=== PATIENT | male | born 1960 | race Hispanic/Latino ===

== ENCOUNTER 2017-09-12 08:15 | Day surgery (SDC) | payer BC ==
[2017-09-01 10:27] VITALS: BMI 30.7
[2017-09-12] MEDS ORDERED: Sodium Chloride 0.9% 1,000 ML IV SCH (09:15)
[2017-09-12 11:36] VITALS: BP 126/86; PULSE 55; RESP 16; TEMP 97.6; O2SAT 98
== END 2017-09-12 12:43 | disposition home or self-care (01) ==
LOC: ENDO 08:15
PROVIDERS: ATTEND Internal Medicine Gastroenterology
DX: K62.1 Rectal polyp (principal); K64.0 First degree hemorrhoids; K31.7 Polyp of stomach and duodenum; K22.10 Ulcer of esophagus without bleeding; K29.50 Unspecified chronic gastritis without bleeding; K52.9 Noninfective gastroenteritis and colitis, unspecified; K21.9 Gastro-esophageal reflux disease without esophagitis; K62.5 Hemorrhage of anus and rectum; E78.5 Hyperlipidemia, unspecified; E78.00 Pure hypercholesterolemia, unspecified; Z90.49 Acquired absence of other specified parts of digestive tract
CPT/HCPCS: 43239; 45380; 88305; 88312; 88342; J2001; J7030; J7040

== ENCOUNTER 2017-12-22 09:48 | Day surgery (SDC) | payer BC ==
[2017-12-20 08:59] VITALS: BMI 30.2
[2017-12-22] MEDS ORDERED: Propofol 10 mg/ml Inj (20 ML) ONE (11:09)
[2017-12-22] MEDS ORDERED: Sodium Chloride 0.9% 1,000 ML IV SCH (11:15)
[2017-12-22 12:22] VITALS: PULSE 63
[2017-12-22 13:42] VITALS: BP 119/77; RESP 18; TEMP 97.6; O2SAT 96
== END 2017-12-22 13:01 | disposition home or self-care (01) ==
LOC: ENDO 09:48
PROVIDERS: ATTEND Internal Medicine Gastroenterology
DX: K25.9 Gastric ulcer, unspecified as acute or chronic, without hemorrhage or perforation (principal); K21.9 Gastro-esophageal reflux disease without esophagitis; K29.70 Gastritis, unspecified, without bleeding; K44.9 Diaphragmatic hernia without obstruction or gangrene; E78.5 Hyperlipidemia, unspecified
CPT/HCPCS: 43239; 88305; 88312; 88342; J2001; J2704; J7030; J7040